=== PATIENT | female | born 2000 | race Caucasian/White ===

== ENCOUNTER 2019-09-04 10:50 | Emergency (ER) | payer OTHER ==
[2019-09-04] MEDS ORDERED: Acetaminophen 500 MG TAB ONE (11:07)
[2019-09-04 11:48] LABS: Bilirubin Negative (Negative); Blood, Urine Negative (Negative); Clarity Clear (Clear); Glucose, Urine (Dipstick) Normal (Negative); Leukocyte Negative Leu/uL (Negative); Nitrite Negative (Negative); Protein, Urine (Dipstick) Negative (Neg-Trace); Urobilinogen Normal mg/dL (Less than 2)
[2019-09-05 14:01] LABS: SARS-CoV-2 MS2 Positive; SARS-CoV-2 N Gene Positive; SARS-CoV-2 S Gene Positive; SARS-CoV-2 orf1ab Positive
== END 2019-09-04 12:40 | disposition home or self-care (01) ==
LOC: ERS 10:50
DX: O99.89 Other specified diseases and conditions complicating pregnancy, childbirth and the puerperium (principal); R50.9 Fever, unspecified; Z3A.16 16 weeks gestation of pregnancy
CPT/HCPCS: 81003; 87635; 96360; U0003

== ENCOUNTER 2021-02-16 11:35 | Emergency (ER) | payer OTHER ==
[2021-02-16 13:23] LABS: Bilirubin Negative (Negative); Blood, Urine Negative (Negative); Clarity Turbid (Clear); Glucose, Urine (Dipstick) Normal (Negative); Ketone, Urine Negative (Negative); Leukocyte 500 Leu/uL (Negative); Mucous/LPF Rare LPF (<2+); Nitrite Negative (Negative); Protein, Urine (Dipstick) Negative (Neg-Trace); RBC/HPF 0-3 HPF (0-3); Specific Gravity, Urine 1.023 (1.002-1.036); Urobilinogen Normal mg/dL (Less than 2)
[2021-02-16 13:33] LABS: Bacteria/HPF 1+ HPF (None Seen)
[2021-02-16 14:01] LABS: Pregnancy Test - Urine (BHCG) Negative (Negative); Pregu Control Background? CLEAR/WHITE (CLR/WHITE); Pregu Control Bar Appear? YES (CONTROL BAR); Specific Gravity 1.023 (1.002-1.036)
[2021-02-16] MEDS ORDERED: Acetaminophen 500 MG TAB ONE (14:20)
== END 2021-02-16 14:21 | disposition home or self-care (01) ==
LOC: ERS 11:35
DX: N89.8 Other specified noninflammatory disorders of vagina (principal)
CPT/HCPCS: 81003; 81015; 81025; 99283